=== PATIENT | female | born 1990 | race Hispanic/Latino ===

== ENCOUNTER 2017-01-02 13:51 | Outpatient (CLI) | payer OTHER ==
--- NOTE | 2017-01-02 16:16 | ULT ---
THIRD TRIMESTER OB ULTRASOUND: HISTORY: Evaluate size and dates. FINDINGS: Multiple longitudinal and transverse images of an intrauterine were obtained using a multi hertz curvilinear transducer. Real-time, color flow, and M-mode sonography demonstrate a viable int rauterine with the fetus in the cephalic presentation. The placenta is anterior and is gr lesly II. anatomic survey is grossly unremarkable. Cardiac activity measures 137 b.p.m. Amniotic fluid index measures 16.7 cm. Cervical length measures 3.3 cm. BIOMETRICS: Biparietal diameter 86 mm, 34 weeks 5 days Head circumference 331 mm, 37 weeks 5 days Abdominal circumference 355 mm, 39 weeks 3 days Femur length 70 mm, 36 weeks 0 days Composite age=37 weeks 0 days with an estimated date of delivery of 01/23/17. Ejection fracti on is 2326 gm. IMPRESSION: Viable intrauterine . Estimated gestational age is 37 weeks 0 days with an estimated date of delivery of 01/23/17. Cardiac activity is confirmed. POS: GERALD
== END 2017-01-02 13:52 | disposition home or self-care (01) ==
LOC: ULT 13:51
PROVIDERS: ATTEND Family Medicine
DX: O24.415 Gestational diabetes mellitus in pregnancy, controlled by oral hypoglycemic drugs (principal); Z3A.37 37 weeks gestation of pregnancy
CPT/HCPCS: 76805

== ENCOUNTER 2017-01-11 04:55 | Inpatient (IN) | payer OTHER, SELFPAY ==
[2017-01-11] MEDS ORDERED: CEFAZOLIN/Water 2 GM/20 ML SYRINGE SLOW IVP SCH (05:17)
[2017-01-11] MEDS ORDERED: Promethazine HCl 25 MG/ML VIAL IM PRN ×2 (05:17→07:40)
[2017-01-11] MEDS ORDERED: Ondansetron HCl/PF 4 MG/2 ML Vial IVP PRN ×4 (05:17→11:03)
[2017-01-11] MEDS ORDERED: Bicitra 30 ML UDCUP PO SCH (05:17)
[2017-01-11] MEDS: Lactated Ringer's 1,000 ML IV SCH (05:20)
[2017-01-11 05:33] VITALS: BMI 35.1
[2017-01-11 05:38] LABS: Hematocrit 40.7 % (36.0-47.0); Mean Platelet Volume 9.2 fL (7.4-10.4); Red Blood Cell (RBC) Count 4.56 mill/uL (4.20-5.40); White Blood Cell (WBC) Count 7.8 thou/uL (4.8-10.8)
[2017-01-11] MEDS ORDERED: Oxytocin 10 UNITS/ML VIAL ONE ×3 (07:17→08:10)
[2017-01-11] MEDS ORDERED: Ondansetron HCl/PF 4 MG/2 ML Vial ONE (07:17)
[2017-01-11] MEDS ORDERED: Morphine PF 1 MG/ML SYR ONE (07:17)
[2017-01-11] MEDS ORDERED: PHENYLEPHRINE-NS 100 MCG/ML 10 ML SYRINGE ONE (07:18)
[2017-01-11 07:37] LABS: ALT (SGPT) 9 U/L (8-55); AST (SGOT) 14 U/L (5-34); Alkaline Phosphatase 121 U/L (40-150); Anion Gap 11 mmol/L (10-20); BUN (Urea Nitrogen) 8 mg/dL (7.0-18.7); Bilirubin, Total 0.5 mg/dL (0.2-1.2); Calc. Creatinine Clearance 233 mL/min (70-130); Calcium 9.1 mg/dL (7.8-10.44); Carbon Dioxide 20 mmol/L (22-29); Chloride 108 mmol/L (98-107); Estimated GFR-MDRD Greater than 90; Globulin 3.1 g/dL (2.4-3.5); Protein, Total 6.2 g/dL (6.0-8.3)
[2017-01-11] MEDS ORDERED: Promethazine HCl 25 MG SUPP PR PRN (07:40)
[2017-01-11] MEDS ORDERED: diphenhydrAMINE 50 MG/ML VIAL IVP PRN (07:40)
[2017-01-11] MEDS ORDERED: Naloxone HCl 0.4 mg/ml Vial IV PRN (07:40)
[2017-01-11] MEDS ORDERED: Meperidine HCl/PF 25 MG/ML VIAL SLOW IVP PRN (07:40)
[2017-01-11] MEDS ORDERED: Eucerin (Mineral Oil/Petrolatum,White) 30 gm Jar TOP PRN (07:40)
[2017-01-11] MEDS ORDERED: HYDROmorphone 2 MG/ML VIAL SLOW IVP PRN (07:40)
[2017-01-11] MEDS ORDERED: Naloxone HCl 0.4 mg/ml Vial IVP PRN ×2 (07:40)
[2017-01-11] MEDS ORDERED: Acetaminophen 1,000 MG in Premix Bag 1 BAG IVPB PRN (07:41)
[2017-01-11] MEDS ORDERED: Communication Order-Pharmacy FS SCH (07:45)
[2017-01-11] MEDS ORDERED: Ketorolac Tromethamine 30 MG/ML VIAL IVP SCH (07:45)
[2017-01-11] MEDS ORDERED: Ketorolac Tromethamine 30 MG/ML VIAL ONE (09:10)
--- NOTE | 2017-01-11 10:19 | OP ---
DATE OF PROCEDURE: 01/11/2017 PREOPERATIVE DIAGNOSES: Term intrauterine with previous section and gestational diabetes on oral hypoglycemic medications. POSTOPERATIVE DIAGNOSES: Term intrauterine with previous section and gestational diabetes on oral hypoglycemics medications, status post delivery. PROCEDURE: Repeat low transverse section. SURGEON: Naomi Leonard M.D. CARE NURSE RN: Raul Leonard M.D. ANESTHESIA: Spinal anesthetic. COMPLICATIONS: None. PROCEDURE IN DETAIL: After adequate spinal anesthetic, the patient was placed in the supine positio n. The abdomen was prepped and draped in the usual sterile technique after a Albright catheter was jenniffer marleny. A wedge had been placed under her right flank. A Pfannenstiel incision was made through the p revious scar. Subcutaneous tissue opened with sharp dissection and cautery. Fascia opened with sha rp dissection, peritoneum opened with sharp dissection, noted that the abdomen was filled with a gra vid uterus. An Owen O retractor was placed. A bladder flap was incised inferiorly and a low mckeon sverse incision was made in the uterus. Membranes were ruptured. Clear fluid was encountered and a viable female was delivered from vertex presentation without difficulty. breathed an d cried spontaneously. Cord was clamped and cut and was handed to care of the neonatology te am. Cord blood was obtained. Placenta was removed manually. A wet lap was used to wipe clean the inside of the uterus and a ring forceps was used to dilate the cervix. This ring forceps was then t aken external to the sterile field. Ring forceps were placed over the hysterotomy edges and the hys terotomy was then closed in 1 layer continuous fashion using 0 Monocryl. Hemostasis was adequate. It was noted that there were some large visible blood vessels and these were retracted without diffi culty. The peritoneum was then closed in continuous fashion using 2-0 plain and the fascia was clos ed in continuous fashion using 0 Vicryl. Sponge and instrument counts were correct. The wound was irrigated. There were no bleeders. 2-0 plain was used to approximate the subcutaneous tissue in co ntinuous fashion and the skin was closed using tonya. The patient tolerated the procedure well to go to recovery room in good condition with estimated blood loss 400 mL. Baby to go to level 1 [facility], noted she is a viable female , weight 8 pounds 11 ounces, Apgars pending at this time.
[2017-01-11] MEDS ORDERED: Lanolin Ointment 7 GM TUBE TOP PRN (11:03)
[2017-01-11] MEDS ORDERED: Acetaminophen 325 MG TAB PO PRN (11:03)
[2017-01-11] MEDS ORDERED: Adacel (T-DAP) 0.5 ML VIAL IM ONE (11:03)
[2017-01-11] MEDS ORDERED: Simethicone Chewable 80 MG TAB PO PRN (11:03)
[2017-01-11] MEDS ORDERED: Bisacodyl 10 MG SUPP PR PRN (11:03)
[2017-01-11] MEDS ORDERED: diphenhydrAMINE 25 MG CAP PO PRN (11:03)
[2017-01-11] MEDS: Ketorolac Tromethamine 30 MG/ML VIAL IVP SCH ×3 (12:18→21:33)
[2017-01-11] MEDS: Docusate (Surfak) 240 MG CAP PO SCH ×2 (12:18→21:30)
[2017-01-11] MEDS: Prenatal Vitamin 1 TAB PO SCH (12:18)
[2017-01-11] MEDS ORDERED: Acetaminophen/Codeine 30-300mg Tablet PO PRN (19:45)
[2017-01-12] MEDS: Lactated Ringer's 1,000 ML IV SCH (00:06)
[2017-01-12] MEDS: Ketorolac Tromethamine 30 MG/ML VIAL IVP SCH ×3 (03:33→17:37)
[2017-01-12 06:33] LABS: Hematocrit 35.4 % (36.0-47.0); Mean Platelet Volume 9.5 fL (7.4-10.4); Red Blood Cell (RBC) Count 3.94 mill/uL (4.20-5.40); White Blood Cell (WBC) Count 6.9 thou/uL (4.8-10.8)
[2017-01-12] MEDS: Docusate (Surfak) 240 MG CAP PO SCH ×2 (09:23→21:35)
[2017-01-12] MEDS: Prenatal Vitamin 1 TAB PO SCH (09:23)
[2017-01-12] MEDS: HYDROcodone/Acetaminophen 5/325 mg Tablet PO PRN (17:35)
[2017-01-12] MEDS: Ibuprofen 800 MG TAB PO SCH (21:35)
[2017-01-13] MEDS: HYDROcodone/Acetaminophen 5/325 mg Tablet PO PRN (06:05)
[2017-01-13] MEDS: Ibuprofen 800 MG TAB PO SCH ×3 (06:05→20:57)
[2017-01-13] MEDS: Docusate (Surfak) 240 MG CAP PO SCH ×2 (08:22→20:57)
[2017-01-13] MEDS: Prenatal Vitamin 1 TAB PO SCH (08:22)
[2017-01-13] MEDS ORDERED: Ibuprofen 800 MG TAB PO SCH (22:00)
[2017-01-14 00:44] VITALS: TEMP 97.9
[2017-01-14] MEDS: Ibuprofen 800 MG TAB PO SCH ×2 (06:03→14:17)
[2017-01-14 08:33] VITALS: BP 108/69
[2017-01-14] MEDS: Prenatal Vitamin 1 TAB PO SCH (09:42)
[2017-01-14] MEDS: Docusate (Surfak) 240 MG CAP PO SCH (09:42)
== END 2017-01-14 15:23 | disposition home or self-care (01) | DRG 766 ==
LOC: L&D 04:55 → 3SW 10:48
PROVIDERS: ADMIT Family Medicine; ATTEND Family Medicine
PROC: 10D00Z1 Extraction of Products of Conception, Low, Open Approach (ICD-10-PCS; principal; 2017-01-11)
DX: O24.425 Gestational diabetes mellitus in childbirth, controlled by oral hypoglycemic drugs (principal); Z37.0 Single live birth; Z3A.39 39 weeks gestation of pregnancy; O34.211 Maternal care for low transverse scar from previous cesarean delivery
CPT/HCPCS: 36415; 80053; 85027; 86780; 86850; 86900; 86901; 87340; 90715; J1885; J2274; J2405; J2590